=== PATIENT | female | born 1990 | race Two or more races ===

== ENCOUNTER 2023-07-18 05:04 | Emergency (ER) | payer OTHER ==
[~2023-07-18] VITALS: Ht 165.1 cm; Wt 90.7 kg
[~2023-07-18 05:04] MED LIST: LEVSIN/SL0.125 MG SL
== END 2023-07-18 08:38 | disposition home or self-care (01) ==
LOC: ER 05:05
DX: J03.90 Acute tonsillitis, unspecified (principal)
CPT/HCPCS: 96372; 99284; J0696; J1885